=== PATIENT | female | born 1985 | race Two or more races ===

== ENCOUNTER 2016-04-09 16:15 | Emergency (ER) | payer BC ==
[2016-04-09] MEDS ORDERED: IV NORMAL SALINE 1000ML BAG 1,000 ML IV SCH (17:18)
[2016-04-09 17:34] LABS: BASO % 1 % (0-3); EOS % 1 % (0-3); HEMOGLOBIN 11.5 g/dL (12.0-15.5); LYMPH # 1.9 x10^3/uL (1.0-4.8); LYMPH % 30 % (24-48); MEAN CORPUSCULAR HEMOGLOBIN 28 pg (25-35); MEAN CORPUSCULAR HGB CONC 33 g/dL (31-37); MEAN CORPUSCULAR VOLUME 84 fL (79-100); MONO % 9 % (0-9); NEUT % 59 % (31-73); PLATELET COUNT 215 x10^3/uL (140-400); RED BLOOD COUNT 4.19 x10^6/uL (3.50-5.40); RED CELL DISTRIBUTION WIDTH 15.9 % (11.5-14.5); WHITE BLOOD COUNT 6.3 x10^3/uL (4.0-11.0)
[2016-04-09 17:50] LABS: NEG OBC SER NEG; POS OBC SER POS
[2016-04-09 17:54] LABS: CALCIUM 8.9 mg/dL (8.5-10.1); CREATININE 0.6 mg/dL (0.6-1.0); GFR 115.9; POTASSIUM 3.4 mmol/L (3.5-5.1)
[2016-04-09 17:59] LABS: ALBUMIN 3.7 g/dL (3.4-5.0); ALBUMIN/GLOBULIN RATIO 0.9 (1.0-1.7); TOTAL BILIRUBIN 0.4 mg/dL (0.2-1.0)
[2016-04-09 18:05] LABS: BILIRUBIN,URINE NEGATIVE (NEG); GLUCOSE,URINE NEGATIVE (NEG); NITRITE,URINE POSITIVE (NEG); PROTEIN,URINE NEGATIVE (NEG-TRACE)
[2016-04-09 18:14] LABS: WBC,URINE 20-40 /HPF (0-4)
[2016-04-09 18:15] LABS: BACTERIA,URINE MANY /HPF (0-FEW); SQUAMOUS EPITHELIAL CELL,UR OCC /LPF
--- NOTE | 2016-04-09 20:33 | RAD ---
Ultrasound Pelvis Indication:pelvic pain no hcg quant @ this time Reason: Abd pain in 6 weeksv by dates / Spl. Instructions: / History: Technique: Multiple real-time grayscale images were obtained over the pelvis transabdominally and transvaginally. Color Doppler imaging was utilized. Findings: The uterus is normal in size measuring 10.0 x 5.9 x 6.0 centimeters. There is an intrauterine gestational sac that measures 1.23 centimeters compatible with estimated gestational age 6 weeks 0 days. The pole is not identified at this time. The right ovary measures 3.6 x 2.1 x 2.0 centimeters. The left ovary measures 3.7 x 2.2 x 1.6 centimeters. Normal arterial blood flow is noted in the bilateral ovarian parenchyma. There is a presumed corpus luteum cyst on the left measures 2.4 centimeters. Impression: - There is an intrauterine gestational sac but no pole is identified at this time. This may be due to the early gestational age which is estimated at 6 weeks 0 days. Electronically signed by: Corbin Nguyen (Apr 09, 2016 20:32:32)
[2016-04-09] MEDS ORDERED: CEPHALEXIN 250 MG CAPSULE PO ONE (21:15)
[2016-04-09] MEDS ORDERED: CEPH-264 PO (21:27)
[2016-04-09 21:39] VITALS: BP 143/80
--- NOTE | 2016-04-10 00:49 | ED.ADGEN ---
Past Medical History Past Medical History: Other Additional Past Medical Histor: ECTOPIC Past Surgical History: Cholecystectomy, Other Additional Past Surgical Histo: ECOPTIC PREG Alcohol Use: Occasionally Drug Use: None Adult General Chief Complaint Chief Complaint: ABDOMINAL PAIN IN HPI HPI Patient is a 30 year old woman, with history of an ectopic several years ago, requiring the removal of her right fallopian tube, who presents to the emergency department with complaint of left sided pelvic pain, to the emergency department, and a recent positive for easy test. Patient states that she was seen by her OB after her positive home test, has received 2 beta quantitative essays by her OB, but has not yet received the ultrasound. She states the pain began late last night, intermittently, recurred in the morning, described as a deep cramping ache in her left pelvic region, without radiation, denies any urinary complaints, any concerns for STI's, any nausea or vomiting, any weakness emesis or tingling, any injuries, any bleeding or fluid loss. No similar symptoms previously. Patient did take Tylenol prior to coming to the ED. She is experiencing no abdominal pain currently. He is taking vitamins. No urinary complaints, no bleeding. Review of Systems Review of Systems Constitutional: Denies fever or chills. [] Eyes: Denies change in visual acuity. [] HENT: Denies nasal congestion or sore throat. [] Respiratory: Denies cough or shortness of breath. [] Cardiovascular: Denies chest pain or edema. [] GI: Denies nausea, vomiting, bloody stools or diarrhea. [Left lower quadrant abdominal pain. : Denies dysuria. [] Musculoskeletal: Denies back pain or joint pain. [] Integument: Denies rash. [] Neurologic: Denies headache, focal weakness or sensory changes. [] Endocrine: Denies polyuria or polydipsia. [] Lymphatic: Denies swollen glands. [] Psychiatric: Denies depression or anxiety. [] Current Medications Current Medications Current Medications Medications (Trade) Dose Ordered Sig/Juan Miguel Start Time Stop Time Status Last Admin Dose Admin Cephalexin HCl (Keflex) 500 mg 1X ONCE 04/09/16 21:15 04/09/16 21:16 DC 04/09/16 21:30 500 MG Sodium Chloride (Iv Sodium Chloride 0.9% 1000ml Bag) 1,000 ml @ 1,000 mls/hr Q1H 04/09/16 17:18 04/09/16 18:17 DC 04/09/16 17:58 1,000 MLS/HR Allergies Allergies Allergies Coded Allergies Type Severity Reaction Last Updated Verified levofloxacin Allergy Intermediate RASH 04/09/16 Yes tramadol Allergy Intermediate RASH 04/09/16 Yes Physical Exam Physical Exam Constitutional: Well developed, well nourished, no acute distress, non-toxic appearance. [] HENT: Normocephalic, atraumatic, bilateral external ears normal, oropharynx moist, no oral exudates, nose normal. [] Eyes: PERRLA, EOMI, conjunctiva normal, no discharge. [] Neck: Normal range of motion, no tenderness, supple, no stridor. [] Cardiovascular:Heart rate regular rhythm, no murmur, S1, S2, rubs or gallops. [] Lungs & Thorax: Bilateral breath sounds clear to auscultation, no wheezing, rhonchi, rales. No chest tenderness or crepitus. [] Abdomen: Bowel sounds normal, soft, very mild tenderness in the left pelvic region, no rebound, rigidity, no guarding, no masses, no pulsatile masses. [] Skin: Warm, dry, no erythema, no rash. [] Back: No tenderness, no CVA tenderness. [] Extremities: No tenderness, no cyanosis, no clubbing, ROM intact, no edema. [] Neurologic: Alert and oriented X 3, normal motor function, normal sensory function, no focal deficits noted. [] Psychologic: Affect normal, judgement normal, mood normal. [] Pelvic examination: Normal-appearing external examination, bilateral examination reveals a closed os, no CMT, no adnexal tenderness or masses identified. Current Patient Data Vital Signs Vital Signs Date Time Temp Pulse Resp B/P Pulse Ox O2 Delivery O2 Flow Rate FiO2 04/09/16 21:39 102 18 143/80 100 Room Air 04/09/16 17:10 98.3 98.3 Lab Values Laboratory Tests Test 04/09/16 17:15 04/09/16 17:19 04/09/16 17:25 Urine Collection Type Unknown Urine Color Yellow Urine Clarity Clear Urine pH 6.0 Urine Specific [place] 1.015 Urine Protein Negativemg/dL (NEG-TRACE) Urine Glucose (UA) Negativemg/dL (NEG) Urine Ketones (Stick) Negativemg/dL (NEG) Urine Blood Moderate (NEG) Urine Nitrite Positive (NEG) Urine Bilirubin Negative (NEG) Urine Urobilinogen Dipstick 1.0mg/dL (0.2 mg/dL) Urine Leukocyte Esterase Small (NEG) Urine RBC 6-10/HPF (0-2) Urine WBC 20-40/HPF (0-4) Urine Squamous Epithelial Cells Occ/LPF Urine Bacteria Many/HPF (0-FEW) Urine Mucus Slight/LPF POC Urine HCG, Qualitative Hcg positive (Negative) White Blood Count 6.3x10^3/uL (4.0-11.0) Red Blood Count 4.19x10^6/uL (3.50-5.40) Hemoglobin 11.5g/dL (12.0-15.5) L Hematocrit 35.0% (36.0-47.0) L Mean Corpuscular Volume 84fL (79-100) Mean Corpuscular Hemoglobin 28pg (25-35) Mean Corpuscular Hemoglobin Concent 33g/dL (31-37) Red Cell Distribution Width 15.9% (11.5-14.5) H Platelet Count 215x10^3/uL (140-400) Neutrophils (%) (Auto) 59% (31-73) Lymphocytes (%) (Auto) 30% (24-48) Monocytes (%) (Auto) 9% (0-9) Eosinophils (%) (Auto) 1% (0-3) Basophils (%) (Auto) 1% (0-3) Neutrophils # (Auto) 3.7x10^3uL (1.8-7.7) Lymphocytes # (Auto) 1.9x10^3/uL (1.0-4.8) Monocytes # (Auto) 0.6x10^3/uL (0.0-1.1) Eosinophils # (Auto) 0.1x10^3/uL (0.0-0.7) Basophils # (Auto) 0.0x10^3/uL (0.0-0.2) Maternal Serum HCG Beta Subunit 3110mIU/mL (0-6) H Sodium Level 139mmol/L (136-145) Potassium Level 3.4mmol/L (3.5-5.1) L Chloride Level 104mmol/L (98-107) Carbon Dioxide Level 26mmol/L (21-32) Anion Gap 9 (6-14) Blood Urea Nitrogen 8mg/dL (7-20) Creatinine 0.6mg/dL (0.6-1.0) Estimated GFR (Cockcroft-Gault) 115.9 BUN/Creatinine Ratio 13 (6-20) Glucose Level 91mg/dL (70-99) Calcium Level 8.9mg/dL (8.5-10.1) Total Bilirubin 0.4mg/dL (0.2-1.0) Aspartate Amino Transferase (AST) 19U/L (15-37) Alanine Aminotransferase (ALT) 19U/L (14-59) Alkaline Phosphatase 51U/L (46-116) Total Protein 8.0g/dL (6.4-8.2) Albumin 3.7g/dL (3.4-5.0) Albumin/Globulin Ratio 0.9 (1.0-1.7) L Serum Test, Qualitative Positive (NEG) Laboratory Tests 04/09/16 17:25 Laboratory Tests 04/09/16 17:25 Microbiology 04/09/16 Wet Prep - Final, Complete EKG EKG Not indicated. [] Radiology/Procedures Radiology/Procedures [] [facility] [address] [place] [address] IMAGING REPORT Signed PATIENT: SRIDHAR SAXENA ACCOUNT: [id number] : 1985 LOCATION: ER AGE: 30 SEX: F EXAM STATUS: REG ER ORD. PHYSICIAN: SUMMER LEVINE DO REASON: Abd pain in ~6 weeksv by dates PROCEDURE: OB < 14 WKS Ultrasound Pelvis Indication:pelvic pain no hcg quant @ this time Reason: Abd pain in 6 weeksv by dates / Spl. Instructions: / History: Technique: Multiple real-time grayscale images were obtained over the pelvis transabdominally and transvaginally. Color Doppler imaging was utilized. Findings: The uterus is normal in size measuring 10.0 x 5.9 x 6.0 centimeters. There is an intrauterine gestational sac that measures 1.23 centimeters compatible with estimated gestational age 6 weeks 0 days. The pole is not identified at this time. The right ovary measures 3.6 x 2.1 x 2.0 centimeters. The left ovary measures 3.7 x 2.2 x 1.6 centimeters. Normal arterial blood flow is noted in the bilateral ovarian parenchyma. There is a presumed corpus luteum cyst on the left measures 2.4 centimeters. Impression: - There is an intrauterine gestational sac but no pole is identified at this time. This may be due to the early gestational age which is estimated at 6 weeks 0 days. Electronically signed by: Corbin Nguyen (Apr 09, 2016 20:32:32) DICTATED and SIGNED BY: CORBIN NGUYEN MD DATE: 04/09/162031 CC: NANAMARIE COUCH MD; SUMMER LEVINE DO ~ Course & Med Decision Making Course & Med Decision Making Pertinent Labs and Imaging studies reviewed. (See chart for details) Patient without pain on examination at this time, ultrasound obtained, reveals normal-appearing left ovary with small corpus luteum cyst, and gestational sac consistent with a possible sequelae in the uterus. No pole identified. Patient's quantitative beta assay is 3110, based on her report it sounds as though this is trending upwards appropriately from her previous beta quantitative states, she does not have the paperwork with her in the ED. Discussed with patient there is no evidence of ectopic at this time, however it is too early for suture was this is a normally developing , and she needs to follow-up with her OB on Tuesday as currently scheduled for additional evaluation and instruction. We also discussed concerning symptoms that would prompt return to the emergency department. Patient was noted to have a nitrate positive urinary tract infection, was initiated on Keflex, first dose given in the ED without issue. She was discharged home with a prescription for 7 days of Keflex, to follow-up with her ART COORDINATOR on Tuesday as scheduled, and return to the ED for concerning symptoms as discussed. Dragon Disclaimer Dragon Disclaimer This electronic medical record was generated, in whole or in part, using a voice recognition dictation system. Departure Impression: Primary Impression: Abdominal pain during Additional Impression: Urinary tract infection during Disposition: HOME, SELF-CARE Condition: IMPROVED Scripts Cephalexin (Keflex)500 Mg [id number] Mg PO BID #14 CAP Prov:SUMMER LEVINE DO 04/09/16 Problem Qualifiers Primary Impression: Abdominal pain during Trimester: first trimester Qualified Code: O26.891 - Other specified related conditions, first trimester Additional Impression: Urinary tract infection during Trimester: first trimester Qualified Code: O23.41 - Unspecified infection of urinary tract in , first trimester USMMER LEVINE DO Apr 10, 2016 00:49
== END 2016-04-09 22:09 | disposition home or self-care (01) ==
LOC: ER 16:15
DX: O23.41 Unspecified infection of urinary tract in pregnancy, first trimester (principal); Z3A.01 Less than 8 weeks gestation of pregnancy; Z90.49 Acquired absence of other specified parts of digestive tract; Z88.5 Allergy status to narcotic agent; Z88.1 Allergy status to other antibiotic agents
CPT/HCPCS: 76801; 80053; 81001; 81025; 84702; 84703; 85027; 87086; 96360; 96361; 99285; J7030; Q0111; 36415; 87491; 87591